=== PATIENT | female | born 2000 | race Caucasian/White ===

== ENCOUNTER 2018-09-18 17:50 | Emergency (ER) | payer OTHER ==
[2018-09-18] MEDS ORDERED: Adacel (T-DAP) 0.5 ML SYRINGE ONE (18:56)
== END 2018-09-18 19:02 | disposition home or self-care (01) ==
LOC: SCSER 17:50
DX: S61.251A Open bite of left index finger without damage to nail, initial encounter (principal); S61.231A Puncture wound without foreign body of left index finger without damage to nail, initial encounter; W55.01XA Bitten by cat, initial encounter
CPT/HCPCS: 90471; 90715